=== PATIENT | male | born 1955 | race African-American/Black ===

== ENCOUNTER 2017-07-29 16:18 | Emergency (ER) | payer OTHER ==
[~2017-07-29 16:18] MED LIST: ISOVUE-370 76%-LOCM 1 ML ONE
[2017-07-29 19:47] LABS: #Eosinphils 0.3 thou/uL (0.0-0.7); #Lymphocytes 0.8 thou/uL (1.20-3.40); #Monocytes 0.5 thou/uL (0.11-0.59); #Neutrophils 4.2 thou/uL (1.40-6.50); %Basophils 0.5 % (0.0-1.0); %Eosinophils 5.4 % (0.0-10.0); %Lymphocytes 13.1 % (21.0-51.0); %Monocytes 9.2 % (0.0-10.0); %Neutrophils 71.7 % (42.0-75.0); Hemoglobin 14.1 g/dL (14.0-18.0); Mean Corpuscular HGB CONC 34.3 g/dL (32.0-36.0); Mean Corpuscular Hemoglobin 31.8 pg (27.0-31.0); Mean Corpuscular Volume 92.9 fl (80.0-94.0); Platelet Count 211 thou/uL (130-400); RBC Distribution Width 11.7 % (11.5-14.5); Red Blood Cell (RBC) Count 4.42 mill/uL (4.70-6.10); White Blood Cell (WBC) Count 5.8 thou/uL (4.8-10.8)
[2017-07-29 19:53] LABS: INR-International Normal Ratio 1.1; PTT 26.1 SEC (22.9-36.1); Prothrombin Time 13.9 SEC (12.0-14.7)
[2017-07-29 20:08] LABS: ALT (SGPT) 15 U/L (8-55); AST (SGOT) 14 U/L (5-34); Albumin 4.4 g/dL (3.4-4.8); Alkaline Phosphatase 54 U/L (40-150); Anion Gap 14 mmol/L (10-20); BUN (Urea Nitrogen) 14 mg/dL (8.4-25.7); Bilirubin, Total 0.3 mg/dL (0.2-1.2); Calc. Creatinine Clearance 0 mL/min (70-130); Calcium 10.4 mg/dL (7.8-10.44); Carbon Dioxide 25 mmol/L (23-31); Chloride 106 mmol/L (98-107); Estimated GFR-MDRD Greater than 90; Globulin 2.7 g/dL (2.4-3.5); Glucose 113 mg/dL (80-115); Protein, Total 7.1 g/dL (5.8-8.1); Sodium 141 mmol/L (136-145)
[2017-07-29 20:13] LABS: CKMB 2.4 ng/mL (0-6.6); Troponin I Less than 0.010 ng/mL (< 0.028)
--- NOTE | 2017-07-29 20:45 | CT ---
EXAM: NONCONTRAST HEAD CT 07/29/17 HISTORY: Left cerebellar findings. Fall. Pain. COMPARISON: None. TECHNIQUE: Noncontrast head CT is performed from skull base to skull vertex. FINDINGS: No parenchymal hemorrhage. No extra-axial hematoma. No midline shift. Basilar cisterns are patent. Br ain volume is age appropriate. Cortical durham-white matter differentiation is preserved. Ventricles and sulci are patent and symmetric. Calvarium is intact. Adequate aeration of the sinuses and mastoid air cells. IMPRESSION: No acute intracranial process. POS: [facility]
--- NOTE | 2017-07-29 21:06 | CT ---
EXAM: CHEST CT WITH CONTRAST ABDOMEN CT WITH CONTRAST PELVIS CT WITH CONTRAST LIMITED CT OF THE THORACIC AND LUMBAR SPINE 07/29/17 HISTORY: Fall. Pain. Trauma. COMPARISON: None. TECHNIQUE: Chest, abdomen and pelvis CT are performed with IV contrast. Coronal reformatted images are submitted for interpretation. Limited CT of the thoracic and lumbar spine is performed with reformatted imagin g. FINDINGS: CHEST CT: No mediastinal mass, lymphadenopathy, or hematoma. Heart size is within normal limits. No pericardial effusion. The thoracic and abdominal aorta have a normal caliber. No injury. Trachea and central bro nchi are patent. No consolidation or mass in lung parenchyma. No pleural effusion or pneumothorax. ABDOMEN CT: The intra and extrahepatic portal vein is patent. Symmetric attenuation of the psoas muscles. There is appropriate enhancement of the solid organs. No solid organ injury. Symmetric enhancement of the k idneys. No obstructive uropathy. No mesenteric mass, lymphadenopathy, free air or free fluid. Limited evaluation of the alimentary canal due to absence of or contrast. No evidence of bowel obstru ction. Normal caliber appendix. Fecal material in a nondistended, nondilated colon. Diverticulosis, w ithout evidence of diverticulitis. PELVIS CT: No mass, lymphadenopathy, free air, or free fluid. The urinary bladder is unremarkable. Bony thorax and bony pelvis are intact. LIMITED CT OF THE THORACIC AND LUMBAR SPINE: Vertebral body heights are maintained. No fracture. IMPRESSION: No posttraumatic sequela in the chest, abdomen or pelvis. POS: [facility]
[2017-07-29] MEDS ORDERED: Aspirin 325 MG TAB ONE (21:16)
== END 2017-07-30 01:46 ==
LOC: ERS 16:18
DX: M54.5 Low back pain (principal); R27.0 Ataxia, unspecified; I10 Essential (primary) hypertension; F32.9 Major depressive disorder, single episode, unspecified; E11.9 Type 2 diabetes mellitus without complications; Z79.899 Other long term (current) drug therapy; Z79.84 Long term (current) use of oral hypoglycemic drugs
CPT/HCPCS: 70450; 71260; 74177; 80053; 82553; 84484; 85025; 85610; 85730; 93005

== ENCOUNTER 2023-05-23 10:02 | Outpatient (CLI) | payer MEDICARE | END 2023-05-23 10:03 | disposition home or self-care (01) | LOC: BICMRI 10:02 | PROVIDERS: ATTEND Orthopaedic Surgery | DX: M70.61 Trochanteric bursitis, right hip (principal); M67.851 Other specified disorders of synovium, right hip; S76.011A Strain of muscle, fascia and tendon of right hip, initial encounter ==

== ENCOUNTER 2023-06-14 11:49 | Emergency (ER) | payer MEDICARE ==
[2023-06-14 13:43] LABS: #Eosinphils 0.1 thou/uL (0.0-0.7); #Monocytes 0.6 thou/uL (0.11-0.59); #Neutrophils 3.1 thou/uL (1.40-6.50); %Basophils 0.4 % (0.0-1.0); %Eosinophils 1.9 % (0.0-10.0); %Lymphocytes 17.3 % (21.0-51.0); %Monocytes 12.8 % (0.0-10.0); %Neutrophils 67.4 % (42.0-75.0); Hematocrit 35.6 % (42.0-52.0); Hemoglobin 12.1 g/dL (14.0-18.0); Mean Corpuscular Hemoglobin 30.5 pg (27.0-31.0); Mean Corpuscular Volume 89.7 fl (78.0-98.0); Mean Platelet Volume 10.4 fL (7.4-10.4); Platelet Count 214 10x3/uL (130-400); RBC Distribution Width 13.8 % (11.5-14.5); Red Blood Cell (RBC) Count 3.97 mill/uL (4.70-6.10); White Blood Cell (WBC) Count 4.6 10x3/uL (4.8-10.8)
[2023-06-14 14:06] LABS: ALT (SGPT) 23 U/L (8-55); AST (SGOT) 29 U/L (5-34); Albumin 4.1 g/dL (3.4-4.8); Alkaline Phosphatase 55 U/L (40-110); Anion Gap 13 mmol/L (10-20); BUN (Urea Nitrogen) 10 mg/dL (8.4-25.7); Bilirubin, Total 0.6 mg/dL (0.2-1.2); Calc. Creatinine Clearance 0 mL/min (70-130); Calcium 9.2 mg/dL (7.8-10.44); Carbon Dioxide 26 mmol/L (23-31); Chloride 105 mmol/L (98-107); Estimated GFR 96; Globulin 2.1 g/dL (2.4-3.5); Glucose 109 mg/dL (80-115); Potassium 3.6 mmol/L (3.5-5.1); Protein, Total 6.2 g/dL (5.8-8.1); Sodium 140 mmol/L (136-145)
[2023-06-14 14:10] LABS: Troponin I Less than 0.010 ng/mL (< 0.028)
[2023-06-14 15:36] LABS: Bacteria/HPF None Seen HPF (None Seen); Bilirubin Negative (Negative); Blood, Urine Negative (Negative); CAUTI Indications for Culture Dysuria,urgency,freq; Clarity Clear (Clear); Glucose, Urine (Dipstick) Normal (Negative); Ketone, Urine Negative (Negative); Leukocyte Negative Leu/uL (Negative); Nitrite Negative (Negative); Protein, Urine (Dipstick) Negative (Neg-Trace); RBC/HPF 0-3 HPF (0-3); Specific Gravity, Urine 1.006 (1.002-1.036); Squamous Epithelial 0-3 HPF (0-3); Urobilinogen Normal mg/dL (Less than 2); WBC/HPF None Seen HPF (0-3); pH, Urine 5.5 (5.0-9.0)
[2023-06-14 15:38] LABS: Urine Culture Reflex No No
[2023-06-14] MEDS ORDERED: Ketorolac Tromethamine 30 MG/ML VIAL ONE (16:34)
== END 2023-06-14 18:25 | disposition home or self-care (01) ==
LOC: ERS 11:49
DX: I87.2 Venous insufficiency (chronic) (peripheral) (principal); M62.838 Other muscle spasm; I10 Essential (primary) hypertension; E11.40 Type 2 diabetes mellitus with diabetic neuropathy, unspecified
CPT/HCPCS: 36415; 71045; 80053; 81001; 82550; 83880; 84484; 85025; 93005; 93970; 96374; J1885

== ENCOUNTER 2023-07-29 09:11 | Inpatient (IN) | payer MEDICARE ==
[2023-07-29 10:19] LABS: #Eosinphils 0.1 thou/uL (0.0-0.7); #Monocytes 0.7 thou/uL (0.11-0.59); #Neutrophils 3.3 thou/uL (1.40-6.50); %Basophils 0.6 % (0.0-1.0); %Eosinophils 1.7 % (0.0-10.0); %Lymphocytes 15.4 % (21.0-51.0); %Monocytes 13.8 % (0.0-10.0); %Neutrophils 68.5 % (42.0-75.0); Hematocrit 35.6 % (42.0-52.0); Hemoglobin 11.9 g/dL (14.0-18.0); Mean Corpuscular HGB CONC 33.4 g/dL (32.0-36.0); Mean Corpuscular Hemoglobin 30.2 pg (27.0-31.0); Mean Corpuscular Volume 90.4 fl (78.0-98.0); Mean Platelet Volume 10.3 fL (7.4-10.4); Platelet Count 246 10x3/uL (130-400); RBC Distribution Width 13.2 % (11.5-14.5); Red Blood Cell (RBC) Count 3.94 mill/uL (4.70-6.10); White Blood Cell (WBC) Count 4.8 10x3/uL (4.8-10.8)
[2023-07-29 10:45] LABS: ALT (SGPT) 21 U/L (8-55); AST (SGOT) 25 U/L (5-34); Albumin 3.9 g/dL (3.4-4.8); Alkaline Phosphatase 63 U/L (40-110); Anion Gap 10 mmol/L (10-20); BUN (Urea Nitrogen) 10 mg/dL (8.4-25.7); Bilirubin, Total 0.6 mg/dL (0.2-1.2); Calc. Creatinine Clearance 0 mL/min (70-130); Calcium 9.2 mg/dL (7.8-10.44); Carbon Dioxide 28 mmol/L (23-31); Chloride 107 mmol/L (98-107); Estimated GFR 99; Globulin 2.3 g/dL (2.4-3.5); Glucose 85 mg/dL (80-115); Protein, Total 6.2 g/dL (5.8-8.1); Sodium 141 mmol/L (136-145)
[2023-07-29 10:53] LABS: Bacteria/HPF None Seen HPF (None Seen); Bilirubin Negative (Negative); Blood, Urine Negative (Negative); CAUTI Indications for Culture Alt mental st,lethar; Clarity Clear (Clear); Glucose, Urine (Dipstick) Normal (Negative); Ketone, Urine Negative (Negative); Leukocyte Negative Leu/uL (Negative); Nitrite Negative (Negative); Protein, Urine (Dipstick) Negative (Neg-Trace); RBC/HPF 0-3 HPF (0-3); Specific Gravity, Urine 1.012 (1.002-1.036); Squamous Epithelial None Seen HPF (0-3); Urobilinogen Normal mg/dL (Less than 2); WBC/HPF 0-3 HPF (0-3)
[2023-07-29 11:06] LABS: Urine Culture Reflex No No
[2023-07-29] MEDS ORDERED: Ondansetron ODT 4 MG TAB PO PRN (14:34)
[2023-07-29] MEDS ORDERED: Acetaminophen 650 MG Suppository PR PRN (14:34)
[2023-07-29] MEDS ORDERED: Ondansetron PF 4 MG/2 ML Vial IVP PRN (14:34)
[2023-07-29] MEDS ORDERED: HYDROcodone/Acetaminophen 5/325 mg Tablet PO PRN (14:34)
[2023-07-29] MEDS ORDERED: Morphine 2 MG/ML VIAL SLOW IVP SCH (14:45)
[2023-07-29] MEDS ORDERED: Vancomycin 1 GM/200 ML (FROZEN) BAG ONE (15:26)
[2023-07-29] MEDS ORDERED: Furosemide 40 MG (4 mL) VIAL ONE (15:26)
[2023-07-29] MEDS ORDERED: Acetaminophen 500 MG TAB PO SCH (16:00)
[2023-07-29] MEDS ORDERED: tiZANidine HCl 4 MG TAB PO SCH ×2 (16:00→21:00)
[2023-07-29 16:39] VITALS: BMI 27.8
[2023-07-29] MEDS ORDERED: Dextrose 50% Abboject 50 ML SYRINGE SLOW IVP PRN (19:20)
[2023-07-29] MEDS ORDERED: HumaLOG 300 UNITS/3 ML VIAL SC PRN ×2 (19:20)
[2023-07-29] MEDS ORDERED: Glucagon 1 MG/ML KIT IM PRN (19:20)
[2023-07-29] MEDS ORDERED: Dextrose 5% in Water 1,000 ML IV PRN (19:20)
[2023-07-29] MEDS ORDERED: Ketorolac Tromethamine 30 MG (1 mL) VIAL IVP PRN (19:21)
[2023-07-29] MEDS ORDERED: Loratadine 10 MG TAB PO SCH (19:30)
[2023-07-29] MEDS: glipiZIDE 5 MG TAB PO SCH (20:24)
[2023-07-29] MEDS: Famotidine 20 MG TAB PO SCH (20:24)
[2023-07-29] MEDS: Gabapentin 300 MG CAP PO SCH (20:24)
[2023-07-29] MEDS ORDERED: Vancomycin 1 GM in Premix 1 BAG IVPB SCH (21:00)
[2023-07-29] MEDS ORDERED: metFORMIN 500 MG TAB PO SCH (21:00)
[2023-07-30] MEDS: Vancomycin 1 GM in Premix 1 BAG IVPB SCH ×2 (02:42→16:01)
[2023-07-30] MEDS: tiZANidine HCl 4 MG TAB PO PRN ×2 (05:33→15:59)
[2023-07-30 06:28] LABS: #Eosinphils 0.1 thou/uL (0.0-0.7); #Monocytes 0.7 thou/uL (0.11-0.59); #Neutrophils 2.1 thou/uL (1.40-6.50); %Basophils 0.8 % (0.0-1.0); %Eosinophils 2.5 % (0.0-10.0); %Lymphocytes 22.2 % (21.0-51.0); %Monocytes 18.4 % (0.0-10.0); %Neutrophils 56.1 % (42.0-75.0); Hematocrit 34.2 % (42.0-52.0); Hemoglobin 11.5 g/dL (14.0-18.0); Mean Corpuscular HGB CONC 33.6 g/dL (32.0-36.0); Mean Corpuscular Hemoglobin 30.7 pg (27.0-31.0); Mean Corpuscular Volume 91.4 fl (78.0-98.0); Platelet Count 234 10x3/uL (130-400); RBC Distribution Width 13.2 % (11.5-14.5); Red Blood Cell (RBC) Count 3.74 mill/uL (4.70-6.10); White Blood Cell (WBC) Count 3.7 10x3/uL (4.8-10.8)
[2023-07-30 06:55] LABS: Anion Gap 14 mmol/L (10-20); BUN (Urea Nitrogen) 13 mg/dL (8.4-25.7); Calc. Creatinine Clearance 91 mL/min (70-130); Calcium 8.8 mg/dL (7.8-10.44); Carbon Dioxide 28 mmol/L (23-31); Chloride 105 mmol/L (98-107); Estimated GFR 94; Glucose 73 mg/dL (80-115); Magnesium 1.8 mg/dL (1.6-2.6); Potassium 3.6 mmol/L (3.5-5.1); Sodium 143 mmol/L (136-145)
[2023-07-30] MEDS: Gabapentin 300 MG CAP PO SCH ×3 (08:44→20:31)
[2023-07-30] MEDS: Atenolol 50 MG TAB PO SCH (08:45)
[2023-07-30] MEDS: Famotidine 20 MG TAB PO SCH ×2 (08:45→20:31)
[2023-07-30] MEDS: Ferrous Sulfate 325 MG TAB PO SCH (08:45)
[2023-07-30] MEDS: Tamsulosin HCl 0.4 MG CAP PO SCH (08:45)
[2023-07-30] MEDS: Atorvastatin Calcium 20 MG TAB PO SCH (08:45)
[2023-07-30] MEDS: Amlodipine 10 MG TAB PO SCH (08:45)
[2023-07-30] MEDS: Fluticasone Propionate Nasal Spray 16 gm Bottle NASAL SCH (08:46)
[2023-07-30] MEDS: Loratadine 10 MG TAB PO SCH (08:46)
[2023-07-30] MEDS: glipiZIDE 5 MG TAB PO SCH ×2 (08:46→20:31)
[2023-07-30] MEDS: Enoxaparin 40 MG (0.4 mL) SYRINGE SC SCH (08:46)
[2023-07-31] MEDS: tiZANidine HCl 4 MG TAB PO PRN ×3 (01:48→21:36)
[2023-07-31 03:38] LABS: Vancomycin, Trough 10.4 ug/mL
[2023-07-31] MEDS: Vancomycin 1 GM in Premix 1 BAG IVPB SCH ×3 (04:19→16:18)
[2023-07-31] MEDS: Enoxaparin 40 MG (0.4 mL) SYRINGE SC SCH (09:08)
[2023-07-31] MEDS: Fluticasone Propionate Nasal Spray 16 gm Bottle NASAL SCH (09:08)
[2023-07-31] MEDS: Ferrous Sulfate 325 MG TAB PO SCH (09:09)
[2023-07-31] MEDS: Gabapentin 300 MG CAP PO SCH ×3 (09:10→21:36)
[2023-07-31] MEDS: Atorvastatin Calcium 20 MG TAB PO SCH (09:10)
[2023-07-31] MEDS: Tamsulosin HCl 0.4 MG CAP PO SCH (09:10)
[2023-07-31] MEDS: Loratadine 10 MG TAB PO SCH (09:11)
[2023-07-31] MEDS: Famotidine 20 MG TAB PO SCH ×2 (09:11→21:36)
[2023-07-31] MEDS: glipiZIDE 5 MG TAB PO SCH ×2 (09:11→21:36)
[2023-07-31] MEDS: Atenolol 50 MG TAB PO SCH (09:11)
[2023-07-31] MEDS: Amlodipine 10 MG TAB PO SCH (09:11)
[2023-08-01] MEDS: Vancomycin 1 GM in Premix 1 BAG IVPB SCH ×2 (03:02→20:09)
[2023-08-01] MEDS ORDERED: glipiZIDE 5 MG TAB PO SCH (08:00)
[2023-08-01] MEDS: Fluticasone Propionate Nasal Spray 16 gm Bottle NASAL SCH (09:10)
[2023-08-01] MEDS: Tamsulosin HCl 0.4 MG CAP PO SCH (09:11)
[2023-08-01] MEDS: Famotidine 20 MG TAB PO SCH ×2 (09:11→20:06)
[2023-08-01] MEDS: Atenolol 50 MG TAB PO SCH (09:11)
[2023-08-01] MEDS: Atorvastatin Calcium 20 MG TAB PO SCH (09:11)
[2023-08-01] MEDS: Enoxaparin 40 MG (0.4 mL) SYRINGE SC SCH (09:11)
[2023-08-01] MEDS: Ferrous Sulfate 325 MG TAB PO SCH (09:12)
[2023-08-01] MEDS: Loratadine 10 MG TAB PO SCH (09:12)
[2023-08-01] MEDS: Gabapentin 300 MG CAP PO SCH ×3 (09:12→20:07)
[2023-08-01] MEDS: tiZANidine HCl 4 MG TAB PO PRN ×3 (09:12→21:50)
[2023-08-01] MEDS: Amlodipine 10 MG TAB PO SCH (09:12)
[2023-08-01] MEDS ORDERED: Vancomycin 1 GM in Premix 1 BAG IVPB SCH (11:45)
[2023-08-01] MEDS: glipiZIDE 5 MG TAB PO SCH (15:31)
[2023-08-01 18:13] LABS: Vancomycin, Trough 11.3 ug/mL
[2023-08-01] MEDS: Acetaminophen 325 MG TAB PO PRN (21:49)
[2023-08-02] MEDS: Acetaminophen 325 MG TAB PO PRN ×2 (05:55→21:07)
[2023-08-02] MEDS: tiZANidine HCl 4 MG TAB PO PRN ×3 (05:56→21:07)
[2023-08-02] MEDS: Vancomycin 1 GM in Premix 1 BAG IVPB SCH (08:06)
[2023-08-02] MEDS: Loratadine 10 MG TAB PO SCH (08:07)
[2023-08-02] MEDS: Fluticasone Propionate Nasal Spray 16 gm Bottle NASAL SCH (08:07)
[2023-08-02] MEDS: Enoxaparin 40 MG (0.4 mL) SYRINGE SC SCH (08:07)
[2023-08-02] MEDS: Atenolol 50 MG TAB PO SCH (08:07)
[2023-08-02] MEDS: Atorvastatin Calcium 20 MG TAB PO SCH (08:08)
[2023-08-02] MEDS: Ferrous Sulfate 325 MG TAB PO SCH (08:08)
[2023-08-02] MEDS: Famotidine 20 MG TAB PO SCH ×2 (08:08→21:02)
[2023-08-02] MEDS: Tamsulosin HCl 0.4 MG CAP PO SCH (08:08)
[2023-08-02] MEDS: Amlodipine 10 MG TAB PO SCH (08:08)
[2023-08-02] MEDS: glipiZIDE 5 MG TAB PO SCH ×2 (08:08→15:34)
[2023-08-02] MEDS: Gabapentin 300 MG CAP PO SCH ×3 (08:09→21:02)
[2023-08-02] MEDS ORDERED: hydrOXYzine 25 MG TAB PO PRN (12:10)
[2023-08-02] MEDS: Cephalexin 250 MG CAP PO SCH (21:02)
[2023-08-03] MEDS: tiZANidine HCl 4 MG TAB PO PRN (04:58)
[2023-08-03] MEDS: Enoxaparin 40 MG (0.4 mL) SYRINGE SC SCH (08:39)
[2023-08-03] MEDS: Atenolol 50 MG TAB PO SCH (08:39)
[2023-08-03] MEDS: Famotidine 20 MG TAB PO SCH (08:39)
[2023-08-03] MEDS: Atorvastatin Calcium 20 MG TAB PO SCH (08:39)
[2023-08-03] MEDS: Gabapentin 300 MG CAP PO SCH (08:40)
[2023-08-03] MEDS: glipiZIDE 5 MG TAB PO SCH (08:40)
[2023-08-03] MEDS: Ferrous Sulfate 325 MG TAB PO SCH (08:40)
[2023-08-03] MEDS: Amlodipine 10 MG TAB PO SCH (08:40)
[2023-08-03] MEDS: Cephalexin 250 MG CAP PO SCH (08:40)
[2023-08-03] MEDS: Loratadine 10 MG TAB PO SCH (08:40)
[2023-08-03] MEDS: Tamsulosin HCl 0.4 MG CAP PO SCH (08:40)
[2023-08-03] MEDS: Fluticasone Propionate Nasal Spray 16 gm Bottle NASAL SCH (08:40)
[2023-08-03 10:13] VITALS: BP 153/77; TEMP 98.1
== END 2023-08-03 15:57 | DRG 602 ==
LOC: ERS 09:11 → MSONC 16:08
PROVIDERS: ADMIT Internal Medicine; ATTEND Hospitalist
DX: L03.115 Cellulitis of right lower limb (principal); G92.8 Other toxic encephalopathy; E11.40 Type 2 diabetes mellitus with diabetic neuropathy, unspecified; E11.51 Type 2 diabetes mellitus with diabetic peripheral angiopathy without gangrene; E78.5 Hyperlipidemia, unspecified; I10 Essential (primary) hypertension; Z88.5 Allergy status to narcotic agent; Z79.899 Other long term (current) drug therapy; Z79.84 Long term (current) use of oral hypoglycemic drugs; Z98.890 Other specified postprocedural states; T42.6X5A Adverse effect of other antiepileptic and sedative-hypnotic drugs, initial encounter; T42.8X5A Adverse effect of antiparkinsonism drugs and other central muscle-tone depressants, initial encounter; T45.0X5A Adverse effect of antiallergic and antiemetic drugs, initial encounter
CPT/HCPCS: 36415; 36416; 51701; 70450; 71045; 72125; 72170; 80048; 80053; 80202; 81001; 82565; 83735; 83880; 85025; 96374; 96375; J1650; J1815; J1885; J1940; J3370-JW